=== PATIENT | female | born 1965 ===

== ENCOUNTER 2017-10-31 07:47 | Day surgery (SDC) | payer BC ==
[~2017-10-31] VITALS: Ht 180.3 cm; Wt 72.6 kg
[2017-10-31] VITALS (9 sets, daily range): BP systolic 107–127; BP diastolic 64–75
--- NOTE | 2017-10-31 06:14 | Anethesia Preoperative Eval ---
Anesthesia Pre-op PMH/ROS General Date of Evaluation: October 31, 2017 Time of Evaluation: 06:13 Anesthesiologist: lito ASA Score: ASA 2 Mallampati Score Class I : Soft palate, uvula, fauces, pillars visible Class II: Soft palate, uvula, fauces visible Class III: Soft palate, base of uvula visible Class IV: Only hard plate visible Mallampati Classification: Class II Surgeon: adrienne Diagnosis: screening colonoscopy Surgical Procedure: colonoscopy Anesthesia History: none Social History: smoking - nonsmoker Family History: no anesthesia problems Allergies: Coded Allergies: No Known Allergies (Unverified , 10/31/17) Medications: see eMAR Past Medical History Gastrointestinal/Genitourinary: Reports: other - kidney stones, uterine fibroids Anesthesia Pre-op Phys. Exam Physician Exam Last Vital Signs Date Time Temp Pulse Resp B/P (MAP) Pulse Ox O2 Delivery O2 Flow Rate FiO2 10/31/17 09:31 97.4 64 17 107/71 100 Simple Mask 6.0 97.4 Constitutional: NAD Neurologic: CN 2-12 intact Cardiovascular: RRR Respiratory: CTA Gastrointestinal: S/NT/ND Airway Exam Mallampati Score: Class II MO: full Neck: supple TMD: 2fb ROM: full Teeth: other - upper bridge Anesthesia Pre-op A/P Risk Assessment & Plan Assessment: asa2 Plan: mac Status Change Before Surgery: No Pre-Antibiotics Drug: Patricia Roemro MD October 31, 2017 06:14
[2017-10-31] MEDS ORDERED: Propofol 200mg/20ml IV ONE (07:48)
[2017-10-31] MEDS ORDERED: Atropine Sulfate 0.4mg/ml inj ONE (07:48)
[2017-10-31] MEDS ORDERED: LR 1000ml ONE (07:48)
[2017-10-31] MEDS ORDERED: Lidocaine 1% MPF 10mg/ml 5ml ONE (07:48)
[2017-10-31] MEDS ORDERED: NKM (08:33)
--- NOTE | 2017-10-31 08:43 | Short Stay Surgery H&P ---
History of Present Illness History of Present Illness Chief Complaint For Screening colon, otherwise no GI conditions. JACK Amin is a 51 year old female who was admitted on for Screening Colonoscopy Patient History Allergies: Coded Allergies: No Known Allergies (Unverified , 10/31/17) Medication History Scheduled No Known Medications* (NKM - No Known Medications*), 0 ., (Reported) Review of Systems Cardiovascular: Reports: no symptoms Respiratory: Reports: no symptoms Skeletal: Reports: no symptoms Gastrointestinal: Reports: no symptoms Genitourinary: Reports: no symptoms Neurologic: Reports: no symptoms Endocrine: Reports: no symptoms Hematologic: Reports: no symptoms Physical Exam Vital Signs Last Vital Signs Date Time Temp Pulse Resp B/P (MAP) Pulse Ox O2 Delivery O2 Flow Rate FiO2 10/31/17 08:30 97.4 53 18 127/70 100 Room Air 97.4 Skin: normal HENT: normal Heart: normal Lungs: normal Abdomen: normal Extremities: normal Genitourinary: normal Plan Plan of Care Total colonoscopy Preop Interventions None. Summary of Findings See the reports Attestation Are the patient's medical conditions optimized for surgery? Attestation Response: yes María Alatorre MD October 31, 2017 08:43
--- NOTE | 2017-10-31 08:44 | Pre-Procedure Note/Attestation ---
Pre-Procedure Note/Attestation Complete Prior to Procedure Planned Procedure: left Procedure Narrative: Endoscopic examination of the total colon Indications for Procedure Pre-Operative Diagnosis: R/O Colon polyps/CA Attestation I attest that I discussed the nature of the procedure; its benefits; risks and complications; and alternatives (and the risks and benefits of such alternatives ), prior to the procedure, with the patient (or the patient's legal insurance account representative). I attest that, if there was a reasonable possibility of needing a blood transfusion, the patient (or the patient's legal insurance account representative) was given the [facility] standardized written summary, pursuant to the [place] Blood Safety Act ([place] Health and Safety Code # 1645, as amended). I attest that I re-evaluated the patient just prior to the surgery and that there has been no change in the patient's H&P, except as documented below: María Alatorre MD October 31, 2017 08:44
--- NOTE | 2017-10-31 09:26 | Endoscopy Procedure Note ---
Endoscopy Procedure Note General Indication for Procedure: Screening colon Procedures Performed: colonoscopy - Minimal internal hemorrhoids and highly redundant left colon otherwise normal total colon. Fair colon clean up. Specimen: none Pt Tolerated Procedure Well: Yes Estimated Blood Loss: none Anesthesia Anesthesiologist: Dr. Garduno Anesthesia: moderate sedation Medications Medication Given: see anesthesia record Inserted Devices Implant(s) used?: No Quality Quality of Bowel Preparation: Fair Did scope reach the cecum?: Yes Was there any complications?: No GI Core Measures 50 yrs or older w/o bx or poly: Yes 10yrs. F/U not recommended: Yes 10 yrs. F/U needed: Yes Med reason:<3 yrs.: System Reason:<3 yrs.: María Alatorre MD October 31, 2017 09:26
--- NOTE | 2017-10-31 09:27 | Discharge Instructions ---
Discharge Instructions Discharge Instructions Follow up with: 2 weeks in the office For Congestive Heart Failure Reminder Report to your physician any weight gain of 5 pounds or more in one week. María Alatorre MD October 31, 2017 09:27
[2017-10-31] MEDS ORDERED: LR 1000ml 1,000 ML IVLG SCH (09:47)
--- NOTE | 2017-10-31 09:50 | Immediate Post-Op Evaluation ---
Immediate Post-Op Evalulation Immediate Post-Op Evalulation Procedure: colonoscopy Date of Evaluation: October 31, 2017 Time of Evaluation: 09:43 IV Fluids: 375 ml lr Blood Products: none Estimated Blood Loss: negligible Blood Pressure Systolic: 107 Blood Pressure Diastolic: 71 Pulse Rate: 65 Respiratory Rate: 18 O2 Sat by Pulse Oximetry: 100 Temperature (Fahrenheit): 97.7 Pain Score (1-10): 0 Nausea: No Vomiting: No Complications none Patient Status: awake, reacts, patent Hydration Status: adequate Drug: Patricia Romero MD October 31, 2017 09:50
--- NOTE | 2017-10-31 09:51 | 48 Hour Post Anesthesia Eval ---
Post Anesthesia Evaluation Procedure: colonoscopy Date of Evaluation: October 31, 2017 Time of Evaluation: 09:45 Blood Pressure Systolic: 110 0: 71 Pulse Rate: 70 Respiratory Rate: 18 Temperature (Fahrenheit): 97.7 O2 Sat by Pulse Oximetry: 100 Airway: patent Nausea: No Vomiting: No Pain Intensity: 0 Hydration Status: adequate Cardiopulmonary Status: stable Mental Status/LOC: patient returned to baseline Post-Anesthesia Complications: none Follow-up care needed: N/A Patricia Belcher MD October 31, 2017 09:51
[2017-10-31] MEDS ORDERED: Atropine Inj 1mg/10ml Syr IV PRN (10:00)
[2017-10-31] MEDS ORDERED: Midazolam 2mg/2ml Inj IVP PRN (10:00)
[2017-10-31] MEDS ORDERED: fentaNYL 100 mcg/2 mL IV PRN (10:00)
[2017-10-31] MEDS ORDERED: DiphenhydrAMINE 50mg/ml Inj IVP PRN (10:00)
--- NOTE | 2017-10-31 21:16 | Procedure Note ---
DATE OF PROCEDURE: 10/31/2017 SURGEON: María Alatorre M.D. PROCEDURE: Total colonoscopy. PREOPERATIVE DIAGNOSIS: Screening colonoscopy. POSTOPERATIVE DIAGNOSIS: Minimal internal hemorrhoids, otherwise completely normal total colonoscopy with high redundancy of the left colon. MEDICATION USED: Per Dr. Garduno, anesthesiologist. INSTRUMENT: GIF Olympus videocolonoscope. DESCRIPTION OF PROCEDURE: The patient after arriving in the endoscopy unit, was told about risks and benefits of the procedure, which she accepted and signed the informed consent. At this time, she was put on the left lateral decubitus position. After adequate IV sedation, the scope was gradually passed through the anal area, which revealed evidence of hemorrhoidal tags and a retroflexion maneuver, which was applied in the rectal area revealed evidence of small internal hemorrhoids without any friability. There was no any pathology in the whole rectum. The scope gradually was passed through highly redundant left colon, which was filled with liquidy stools, which had to be suctioned and irrigated all the time, but there was no any gross pathology such as polyps, tumors, strictures, colitis, etc. The scope was gradually passed into highly redundant colon reaching towards the left splenic flexure. From there, it was guided into the transverse colon. It gradually reached in to hepatic flexure and then was introduced into the right colon all the way to the base of the cecum. All these areas remained to be completely normal and no abnormality was found. As I mentioned, the colon cleanup was rather fair with liquidy stool along the colon. At this point, upon reaching to the cecum, within 7 minutes the scope was gradually pulled out and re-evaluation of the colon did not reveal any pathology. The patient finally tolerated the procedure well and left the endoscopy room in a good condition. María Alatorre M.D. DR: TOI JOB#: [id number] CC:
== END 2017-10-31 10:45 | disposition home or self-care (01) ==
LOC: GAS 07:47
DX: Z12.11 Encounter for screening for malignant neoplasm of colon (principal); K64.8 Other hemorrhoids; Z87.442 Personal history of urinary calculi
CPT/HCPCS: 45378; J0461; J2704; J7120; 94003; 94150